=== PATIENT | male | born 1995 | race Caucasian/White ===

== ENCOUNTER 2018-05-20 11:20 | Emergency (ER) | payer BC ==
[2016-07-20 12:17] VITALS: Wt 81.6 kg
[~2018-05-20 11:20] MED LIST: ALB6.7R INH; ALBU4TAB37 PO; CLAR-1 PO; CYCL-343 PO; DIC75 PO; GUAI600T57 PO; HYDR-389 PO; IBU600 PO; IBUP-1671 PO; IBUP600T22 PO; LOR5 PO; LOR5/325 PO; LORA-941 PO; LORA10TA2 PO; MONT5TAB15 PO; PER PO
--- NOTE | 2018-05-20 11:30 | ER Report ---
History and Physical Time Seen By MD: 11:27 HPI/ROS CHIEF COMPLAINT: Flu symptoms HISTORY OF PRESENT ILLNESS: This is a 22-year-old male who presents to the emergency department for flulike symptoms. Patient states over the last 24 hours he's had a rather abrupt onset of aches, chills, nausea vomiting and some diarrhea. Some abdominal cramping. No dysuria. States he has "some autoimmune disease that makes him really sick". He does have achiness throughout his entire back that does wax and wane. Patient has not received a influenza vaccine. I did recommend after he is over his illness that he should follow up with [facility] for vaccine. No rashes. No meningismus. No chest pain or shortness of breath. REVIEW OF SYSTEMS: Respiratory: No cough, no dyspnea. Cardiovascular: No chest pain, no palpitations. Gastrointestinal: As well. Musculoskeletal: Above. Allergies: Coded Allergies: Shellfish (Verified Allergy, Intermediate, unknown, 05/20/18) iodine (Verified Allergy, Mild, 05/20/18) Home Meds Active Scripts Promethazine Hcl (PROMETHAZINE HCL) 25 Mg Tablet, 25 MG PO Q8H, #12 TAB 0 Refills Prov:MANAN VILLALOBOS [facility] 05/20/18 Ondansetron (ZOFRAN ODT) 4 Mg Tab.rapdis, 4 MG PO Q6H PRN for NAUSEA/VOMITING, #20 TAB.AGTAHA Prov:MANAN VILLALOBOS [facility] 05/20/18 Ibuprofen (IBUPROFEN) 600 Mg Tablet, 600 MG PO TIDCF, #30 TAB 1 Refill Prov:SUSAN CISNEROS MD 07/20/16 Acetaminophen/Hydrocodone (HYDROCODON-ACETAMINOPH 7.5-325) 1 Each Ea, 1-2 EACH PO Q4H PRN for PAIN, #30 TAB 0 Refills Prov:SUSAN CISNEROS MD 07/20/16 Guaifenesin (MUCINEX) 600 Mg Tablet.er, 600 MG PO BID, #0 TAB Prov:KARINA CISNEROS MD 07/19/16 Albuterol Sulfate (ALBUTEROL SULFATE) 4 Mg Tab.er.12h, 4 MG PO BID, #0 TAB Prov:KARINA CISNEROS MD 07/19/16 Past Medical/Surgical History Patient has a past medical and surgical history of oral surgery, the back pain injury, seasonal allergies, asthma, knee surgery, hand surgery, smokes. Reviewed Nurses Notes: Yes Hx Smoking: Yes Smoking Status: Former Smoker Hx Substance Use Disorder: No Hx Alcohol Use: No Constitutional Vital Sign - Last 24 Hours 05/20/18 05/20/18 05/20/18 05/20/18 11:30 13:00 13:15 13:30 Temp 98.2 Pulse 71 63 57 83 Resp 16 B/P (MAP) 114/63 115/68 (84) 118/67 (84) 113/70 (84) Pulse Ox 99 97 94 97 O2 Delivery Room Air Room Air Physical Exam General Appearance: The patient is alert, has no immediate need for airway protection and no current signs of toxicity. Eyes: Pupils equal and round no injection. Respiratory: Chest is non tender, lungs are clear to auscultation. Cardiac: regular rate and rhythm, no murmurs, clicks or rubs. Gastrointestinal: Abdomen is soft, mildly tender throughout the abdomen, hyperactive bowel sounds, no masses, no abdominal bruits. Musculoskeletal: Neck: Neck is supple and non tender. No nuchal pain. Extremities have full range of motion and are non tender. Skin: No rashes or lesions. DIFFERENTIAL DIAGNOSIS: After history and physical exam differential diagnosis was considered for influenza, viral syndrome, gastroenteritis. Medical Decision Making Data Points Result Diagram: 05/20/18 1205 05/20/18 1205 Laboratory Hematology Test 05/20/18 12:05 05/20/18 12:08 05/20/18 12:15 Red Blood Count 5.89 M/uL (4.00-5.60) Mean Corpuscular Volume 87.5 fL (80.0-96.0) Mean Corpuscular Hemoglobin 29.9 pg (26.0-33.0) Mean Corpuscular Hemoglobin Concent 34.2 g/dL (32.0-36.0) Red Cell Distribution Width 12.8 % (11.5-14.5) Mean Platelet Volume 9.1 fL (7.2-11.1) Neutrophils (%) (Auto) 82.0 % (39.4-72.5) Lymphocytes (%) (Auto) 12.2 % (17.6-49.6) Monocytes (%) (Auto) 5.1 % (4.1-12.4) Eosinophils (%) (Auto) 0.3 % (0.4-6.7) Basophils (%) (Auto) 0.4 % (0.3-1.4) Nucleated RBC Relative Count (auto) 0.0 /100WBC Neutrophils # (Auto) 6.6 K/uL (2.0-7.4) Lymphocytes # (Auto) 1.0 K/uL (1.3-3.6) Monocytes # (Auto) 0.4 K/uL (0.3-1.0) Eosinophils # (Auto) 0.0 K/uL (0.0-0.5) Basophils # (Auto) 0.0 K/uL (0.0-0.1) Nucleated RBC Absolute Count (auto) 0.00 K/uL Sodium Level 138 mmol/L (137-145) Potassium Level 3.7 mmol/L (3.5-5.0) Chloride Level 103 mmol/L (98-107) Carbon Dioxide Level 23 mmol/L (22-30) Blood Urea Nitrogen 18 mg/dl (9-21) Creatinine 0.90 mg/dl (0.66-1.25) Glomerular Filtration Rate Calc > 60.0 Random Glucose 89 mg/dl (75-110) Calcium Level 8.7 mg/dl (8.4-10.2) Total Bilirubin 2.5 mg/dl (0.2-1.3) Aspartate Amino Transf (AST/SGOT) 30 U/L (0-35) Alanine Aminotransferase (ALT/SGPT) 42 U/L (0-56) Alkaline Phosphatase 92 U/L (0-126) Total Protein 7.6 g/dl (6.3-8.2) Albumin 4.2 g/dl (3.5-5.0) Lipase 56 U/L (23-300) Influenza Virus Type A (PCR) Negative (NEGATIVE) Influenza Virus Type B (PCR) Negative (NEGATIVE) Urine Color Yellow Urine Clarity Clear Urine pH 5.0 pH (4.8-9.5) Urine Specific Angela 1.026 Urine Protein Negative mg/dL (NEGATIVE) Urine Glucose (UA) Negative mg/dL (NEGATIVE) Urine Ketones Trace mg/dL (NEGATIVE) Urine Blood Negative (NEGATIVE) Urine Nitrite Negative (NEGATIVE) Urine Bilirubin Negative (NEGATIVE) Urine Urobilinogen 4.0 mg/dL (0.2-1.9) Urine Leukocyte Esterase Negative (NEGATIVE) Urine RBC <1 /HPF (0-2/HPF) Urine WBC 1 /HPF (0-5/HPF) Urine Squamous Epithelial Cells None /LPF (</=FEW) Urine Bacteria Negative /HPF (NONE-FEW) Urine Mucus Few /HPF (NONE-FEW) Chemistry Test 05/20/18 12:05 05/20/18 12:08 05/20/18 12:15 White Blood Count 8.1 k/uL (4.5-11.0) Red Blood Count 5.89 M/uL (4.00-5.60) Hemoglobin 17.6 g/dL (14.0-18.0) Hematocrit 51.6 % (42.0-52.0) Mean Corpuscular Volume 87.5 fL (80.0-96.0) Mean Corpuscular Hemoglobin 29.9 pg (26.0-33.0) Mean Corpuscular Hemoglobin Concent 34.2 g/dL (32.0-36.0) Red Cell Distribution Width 12.8 % (11.5-14.5) Platelet Count 261 K/uL (150-450) Mean Platelet Volume 9.1 fL (7.2-11.1) Neutrophils (%) (Auto) 82.0 % (39.4-72.5) Lymphocytes (%) (Auto) 12.2 % (17.6-49.6) Monocytes (%) (Auto) 5.1 % (4.1-12.4) Eosinophils (%) (Auto) 0.3 % (0.4-6.7) Basophils (%) (Auto) 0.4 % (0.3-1.4) Nucleated RBC Relative Count (auto) 0.0 /100WBC Neutrophils # (Auto) 6.6 K/uL (2.0-7.4) Lymphocytes # (Auto) 1.0 K/uL (1.3-3.6) Monocytes # (Auto) 0.4 K/uL (0.3-1.0) Eosinophils # (Auto) 0.0 K/uL (0.0-0.5) Basophils # (Auto) 0.0 K/uL (0.0-0.1) Nucleated RBC Absolute Count (auto) 0.00 K/uL Glomerular Filtration Rate Calc > 60.0 Calcium Level 8.7 mg/dl (8.4-10.2) Total Bilirubin 2.5 mg/dl (0.2-1.3) Aspartate Amino Transf (AST/SGOT) 30 U/L (0-35) Alanine Aminotransferase (ALT/SGPT) 42 U/L (0-56) Alkaline Phosphatase 92 U/L (0-126) Total Protein 7.6 g/dl (6.3-8.2) Albumin 4.2 g/dl (3.5-5.0) Lipase 56 U/L (23-300) Influenza Virus Type A (PCR) Negative (NEGATIVE) Influenza Virus Type B (PCR) Negative (NEGATIVE) Urine Color Yellow Urine Clarity Clear Urine pH 5.0 pH (4.8-9.5) Urine Specific Angela 1.026 Urine Protein Negative mg/dL (NEGATIVE) Urine Glucose (UA) Negative mg/dL (NEGATIVE) Urine Ketones Trace mg/dL (NEGATIVE) Urine Blood Negative (NEGATIVE) Urine Nitrite Negative (NEGATIVE) Urine Bilirubin Negative (NEGATIVE) Urine Urobilinogen 4.0 mg/dL (0.2-1.9) Urine Leukocyte Esterase Negative (NEGATIVE) Urine RBC <1 /HPF (0-2/HPF) Urine WBC 1 /HPF (0-5/HPF) Urine Squamous Epithelial Cells None /LPF (</=FEW) Urine Bacteria Negative /HPF (NONE-FEW) Urine Mucus Few /HPF (NONE-FEW) Urinalysis Test 05/20/18 12:15 Urine Color Yellow Urine Clarity Clear Urine pH 5.0 pH (4.8-9.5) Urine Specific Angela 1.026 Urine Protein Negative mg/dL (NEGATIVE) Urine Glucose (UA) Negative mg/dL (NEGATIVE) Urine Ketones Trace mg/dL (NEGATIVE) Urine Blood Negative (NEGATIVE) Urine Nitrite Negative (NEGATIVE) Urine Bilirubin Negative (NEGATIVE) Urine Urobilinogen 4.0 mg/dL (0.2-1.9) Urine Leukocyte Esterase Negative (NEGATIVE) Urine RBC <1 /HPF (0-2/HPF) Urine WBC 1 /HPF (0-5/HPF) Urine Squamous Epithelial Cells None /LPF (</=FEW) Urine Bacteria Negative /HPF (NONE-FEW) Urine Mucus Few /HPF (NONE-FEW) ED Course/Re-evaluation Clinical Indication for ER IV: Hydration, IV Access ED Course The patient was admitted to room. A history and physical were obtained. Differential diagnoses were considered. An IV was started. A CBC, CMP and influenza were obtained. Laboratory studies unremarkable. Urine showing mild dehydration, concentrated with some ketones. Patient was given a 1 L normal saline bolus. 4 mg IV Zofran, 30 mg IV Toradol. Patient had complete relief of the nausea and sick and relief of his aches and pains. I did review the laboratory results with the patient. I did tell him that this is likely a gastroenteritis and that we will pass. The patient was given a prescription for Zofran and Phenergan. Patient was also instructed to take ibuprofen or Tylenol for aches and pains and chills. Also encouraged to trial a clear liquid diet for the next 24-48 hours. The patient had no other questions or concerns at this time and was discharged home. Patient was agreeable with this plan of care. Decision to Disposition Date: May 20, 2018 Decision to Disposition Time: 13:27 Depart Departure Latest Vital Signs Vital Signs Date Time Temp Pulse Resp B/P (MAP) Pulse Ox O2 Delivery O2 Flow Rate FiO2 05/20/18 13:30 83 113/70 (84) 97 Room Air 05/20/18 11:30 98.2 16 Impression: Primary Impression: Gastroenteritis Condition: Improved Disposition: HOME OR SELF-CARE New Scripts Promethazine Hcl (PROMETHAZINE HCL) 25 Mg Tablet 25 MG PO Q8H, #12 TAB 0 Refills Prov: MANAN VILLALOBOS [employer] 05/20/18 Ondansetron (ZOFRAN ODT) 4 Mg Tab.rapdis 4 MG PO Q6H PRN for NAUSEA/VOMITING, #20 TAB.AGATHA Prov: MANAN VILLALOBOS [employer] 05/20/18 Patient Instructions: Clear Liquid Diet (ED), Gastroenteritis (ED) Additional Instructions: I would recommend a clear liquid diet for the next 24-48 hours. Take the Zofran and Phenergan as needed for nausea and vomiting. Be aware that the Phenergan does cause severe drowsiness. Drink plenty of water. You can also try a sports drinks such as Gatorade. Get plenty of rest. Return to the emergency department for any other concerns or worsening symptoms. Check with public health regarding the influenza vaccine. Take ibuprofen or Tylenol as needed for aches and pains. MANAN VILLALOBOS [facility] May 20, 2018 11:30
[2018-05-20] MEDS ORDERED: NS(*) 0.9% 1000 ML BAG 1,000 ML IV ONE (11:42)
[2018-05-20] MEDS ORDERED: ONDANSETRON 4 MG/2 ML VIAL IVP ONE (11:45)
[2018-05-20] MEDS ORDERED: KETOROLAC 30 MG/ML VIAL IVP ONE (12:25)
[2018-05-20 12:33] LABS: PLATELET COUNT, AUTOMATED 261 K/uL (150-450)
[2018-05-20] MEDS ORDERED: ONDA4TAB PO (13:28)
[2018-05-20] MEDS ORDERED: PROM-110 PO (13:28)
[2018-05-20 13:30] VITALS: BP 113/70
== END 2018-05-20 13:52 | disposition home or self-care (01) ==
LOC: ER 11:25
DX: K52.9 Noninfective gastroenteritis and colitis, unspecified (principal); E86.0 Dehydration
CPT/HCPCS: 81001; 83690; 85025; 87502; 96361; 96374; 96375; 99284; J1885; J2405; J7030; 82040; 82247; 82310; 82374; 82435; 82565; 82947; 84075; 84132; 84155; 84295; 84450; 84460; 84520

== ENCOUNTER 2018-06-13 01:49 | Emergency (ER) | payer BC ==
[2016-07-20 12:17] VITALS: Wt 68.0 kg
[~2018-06-13 01:49] MED LIST changes: -ONDA4TAB9 PO
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
[2018-06-13] MEDS ORDERED: fentaNYL CITR 100 MCG/2 ML AMP IVP ONE (02:15)
[2018-06-13 02:22] LABS: PLATELET COUNT, AUTOMATED 300 K/uL (150-450)
[2018-06-13 02:23] LABS: INR 0.98
--- NOTE | 2018-06-13 03:39 | EKG ---
FACILITY: [facility] PATIENT NAME: KERRY RAMIREZ : [id number] MR: [id number] V: [id number] EXAM DATE: ORDERING PHYSICIAN: GERMAIN HANCOCK TECHNOLOGIST: OUMOU Test Reason : SEIZURE Blood Pressure : / mmHG Vent. Rate : 083 BPM Atrial Rate : 083 BPM P-R Int : 138 ms QRS Dur : 086 ms QT Int : 364 ms P-R-T Axes : -43 070 053 degrees QTc Int : 427 ms Sinus rhythm, but with unusual P wave axis Diffuse ST elevation suspect early repolarization, but cannot exclude other causes Abnormal ECG No previous ECGs available Confirmed by SUSAN CISNEROS ([id number]) on 06/13/2018 6:23:17 AM Referred By: SANTI Confirmed By:SUSAN CISNEROS
[2018-06-13] MEDS ORDERED: ONDANSETRON 4 MG/2 ML VIAL IVP ONE (03:40)
[2018-06-13] MEDS ORDERED: HYDROMORPHONE HCL 1 MG/ML SYRINGE IVP ONE (03:45)
--- NOTE | 2018-06-13 03:52 | RADIOLOGY IMAGING REPORT ---
FACILITY: [facility] [place] PATIENT NAME: Lopez Red : 1995 MR: [id number] V: [id number] EXAM DATE: ORDERING PHYSICIAN: GERMAIN HANCOCK TECHNOLOGIST: Location: [facility] Patient: Lopez Red : 1995 Visit/Account:[id number] Date of Sevice: 06/13/2018 HEAD W/O CONTRAST HISTORY: Seizure. Fall. Head, neck, and back pain. COMPARISON: 07/18/2016 and studies dating to 05/30/2008. CT cervical spine and CT chest, abdomen, and pelvis with thoracic and lumbar spine reformats were performed at the same time as the current examin [facility]. TECHNIQUE: Axial images were obtained from the skull base to the vertex without contrast. Sagittal an d coronal reformats were performed. One of the following dose optimization techniques was utilized in the performance of this exam: Autom ated exposure control; adjustment of the mA and/or kV according to the patient's size; or use of an i terative reconstruction technique. Specific details can be referenced in the facility's radiology CT exam operational policy. CONTRAST: None. FINDINGS: Brain: No intracranial hemorrhage, mass, or edema. Ventricles and sulci: Sulci are normal. Ventricular size and configuration is normal. Osseous structures: Intact. Paranasal sinuses and mastoids: There is mild mucosal thickening of the ethmoid sinuses. Rightward na devon septal deviation and rightward nasal septal spur. Mastoids are clear. The upper left central inci sor is absent. There is metallic hardware in the mouth. Orbits and soft tissues: Normal. IMPRESSION: 1. No acute intracranial abnormality. Report Dictated By: Nargis Armenta at 06/13/2018 3:42 AM Report E-Signed By: Nargis Armenta at 06/13/2018 3:48 AM WSN:[id number]
--- NOTE | 2018-06-13 03:56 | RADIOLOGY IMAGING REPORT ---
[place] [facility] [place] Lopez Red : 1995 MR: [id number] V: [id number] EXAM DATE: ORDERING PHYSICIAN: GERMAIN HANCOCK TECHNOLOGIST: Location: [facility] [place] Patient: Lopez Red : 1995 Visit/Account:[id number] Date of Sevice: 06/13/2018 C-SPINE W/O CONTRAST HISTORY: Seizure. Fall. Head, neck, and back pain. COMPARISON: Prior CT cervical spine 07/18/2016 and studies dating to 05/30/2008. TECHNIQUE: Axial images were obtained from the skull base through the upper thoracic spine. Coronal a nd sagittal reformatted images were obtained from the axial source data. One of the following dose optimization techniques was utilized in the performance of this exam: Autom ated exposure control; adjustment of the mA and/or kV according to the patient's size; or use of an i terative reconstruction technique. Specific details can be referenced in the facility's radiology CT exam operational policy. CONTRAST: None. FINDINGS: Musculoskeletal/vertebra: No acute osseous abnormality. Vertebral body heights are maintained and ali gnment is unremarkable. Prevertebral soft tissues are within normal limits. The spinal canal is savi l in caliber. Visualized upper chest: Normal. Soft tissues: There is a left tonsillith. No tonsillar inflammation. There is mild dependent subcutan eous edema. IMPRESSION: 1. No acute osseous abnormality of the cervical spine. Report Dictated By: Nargis Armenta at 06/13/2018 3:48 AM Report E-Signed By: Nargis Armenta at 06/13/2018 3:52 AM WSN:[id number]
[2018-06-13 04:31] VITALS: BP 113/63
--- NOTE | 2018-06-13 04:39 | RADIOLOGY IMAGING REPORT ---
[place] [facility] [place] NAME: Lopez Red : 1995 MR: [id number] V: [id number] EXAM DATE: ORDERING PHYSICIAN: GERMAIN HANCOCK TECHNOLOGIST: [facility] Patient: Lopez Red : 1995 Visit/Account:[id number] Date of Sevice: 06/13/2018 CHEST/AB/PELV W/OUT CONTRAST, L-SPINE W/O CONTRAST, T-SPINE W/O CONTRAST HISTORY: Seizure. Fall. Low back pain. COMPARISON: None. TECHNIQUE: Axial images were obtained from the thoracic inlet through the symphysis pubis without int ravenous contrast. Sagittal and coronal reformats were performed. Images of the thoracic and lumbar spine were reconstructed from the CT source images, and sagittal an d coronal reformats were performed. One of the following dose optimization techniques was utilized in the performance of this exam: Autom ated exposure control; adjustment of the mA and/or kV according to the patient's size; or use of an i terative reconstruction technique. Specific details can be referenced in the facility's radiology CT exam operational policy. CONTRAST: None. FINDINGS: Lack of intravenous contrast limits evaluation for vascular and subtle solid organ injury. Thoracic inlet: Normal. Thoracic aorta: No aneurysm. There is no atherosclerosis of the thoracic aorta. Heart / Pericardium: The heart is normal. There is trace, likely physiologic, pericardial effusion. T here is no coronary artery calcification. Mediastinum / Mayelin: Minimal residual thymic tissue, normal for age. No lymphadenopathy. Lungs / Pleura: No pleural effusion. The lungs are clear. No pneumothorax. The airways are normal. Liver: Normal. Gallbladder/biliary: Normal. Pancreas: Normal. Spleen: Normal. Adrenals: Normal. Kidneys/ureters/bladder: There is are a 1-2 mm nonobstructing calculus in the left upper kidney and a second in the left lower kidney. No hydronephrosis. The right kidney, the ureters, and the bladder a re normal. GI/mesentery/peritoneal cavity: There is no bowel obstruction. There is no wall thickening or pericol onic stranding. The appendix is normal. There is no free air or free fluid. Vessels: No atherosclerotic disease. No aneurysm. Nodes: Normal. Pelvis: Normal. Bones/vertebra/soft tissues: There is minimal concave deformity of the superior endplate of T12. Ther e is minimal wedging of T11. Both vertebra are unchanged compared to chest x-ray of 07/18/2016. There are numerous Schmorl nodes. There is 4 mm retrolisthesis of L5 on S1. IMPRESSION: 1. No acute traumatic abnormality of the chest, abdomen, or pelvis. Report Dictated By: Nargis Armenta at 06/13/2018 4:16 AM Report E-Signed By: Nargis Armenta at 06/13/2018 4:34 AM WSN:[id number]
--- NOTE | 2018-06-13 04:40 | RADIOLOGY IMAGING REPORT ---
FACILITY: [facility] PATIENT NAME: Lopez Red : 1995 MR: [id number] V: [id number] EXAM DATE: ORDERING PHYSICIAN: GERMAIN HANCOCK TECHNOLOGIST: [place] [facility] [place] : 1995 Visit/Account:[id number] Date of Sevice: 06/13/2018 CHEST/AB/PELV W/OUT CONTRAST, L-SPINE W/O CONTRAST, T-SPINE W/O CONTRAST HISTORY: Seizure. Fall. Low back pain. COMPARISON: None. TECHNIQUE: Axial images were obtained from the thoracic inlet through the symphysis pubis without int ravenous contrast. Sagittal and coronal reformats were performed. Images of the thoracic and lumbar spine were reconstructed from the CT source images, and sagittal an d coronal reformats were performed. One of the following dose optimization techniques was utilized in the performance of this exam: Autom ated exposure control; adjustment of the mA and/or kV according to the patient's size; or use of an i terative reconstruction technique. Specific details can be referenced in the facility's radiology CT exam operational policy. CONTRAST: None. FINDINGS: Lack of intravenous contrast limits evaluation for vascular and subtle solid organ injury. Thoracic inlet: Normal. Thoracic aorta: No aneurysm. There is no atherosclerosis of the thoracic aorta. Heart / Pericardium: The heart is normal. There is trace, likely physiologic, pericardial effusion. T here is no coronary artery calcification. Mediastinum / Mayelin: Minimal residual thymic tissue, normal for age. No lymphadenopathy. Lungs / Pleura: No pleural effusion. The lungs are clear. No pneumothorax. The airways are normal. Liver: Normal. Gallbladder/biliary: Normal. Pancreas: Normal. Spleen: Normal. Adrenals: Normal. Kidneys/ureters/bladder: There is are a 1-2 mm nonobstructing calculus in the left upper kidney and a second in the left lower kidney. No hydronephrosis. The right kidney, the ureters, and the bladder a re normal. GI/mesentery/peritoneal cavity: There is no bowel obstruction. There is no wall thickening or pericol onic stranding. The appendix is normal. There is no free air or free fluid. Vessels: No atherosclerotic disease. No aneurysm. Nodes: Normal. Pelvis: Normal. Bones/vertebra/soft tissues: There is minimal concave deformity of the superior endplate of T12. Ther e is minimal wedging of T11. Both vertebra are unchanged compared to chest x-ray of 07/18/2016. There are numerous Schmorl nodes. There is 4 mm retrolisthesis of L5 on S1. IMPRESSION: 1. No acute traumatic abnormality of the chest, abdomen, or pelvis. Report Dictated By: Nargis Armenta at 06/13/2018 4:16 AM Report E-Signed By: Nargis Armenta at 06/13/2018 4:34 AM WSN:[id number]
--- NOTE | 2018-06-13 04:40 | RADIOLOGY IMAGING REPORT ---
[place] [facility] [place] NAME: Lopez Red : 1995 MR: [id number] V: [id number] EXAM DATE: ORDERING PHYSICIAN: GERMAIN HANCOCK TECHNOLOGIST: Location: [facility] Patient: Lopez Red : 1995 Visit/Account:[id number] Date of Sevice: 06/13/2018 CHEST/AB/PELV W/OUT CONTRAST, L-SPINE W/O CONTRAST, T-SPINE W/O CONTRAST HISTORY: Seizure. Fall. Low back pain. COMPARISON: None. TECHNIQUE: Axial images were obtained from the thoracic inlet through the symphysis pubis without int ravenous contrast. Sagittal and coronal reformats were performed. Images of the thoracic and lumbar spine were reconstructed from the CT source images, and sagittal an d coronal reformats were performed. One of the following dose optimization techniques was utilized in the performance of this exam: Autom ated exposure control; adjustment of the mA and/or kV according to the patient's size; or use of an i terative reconstruction technique. Specific details can be referenced in the facility's radiology CT exam operational policy. CONTRAST: None. FINDINGS: Lack of intravenous contrast limits evaluation for vascular and subtle solid organ injury. Thoracic inlet: Normal. Thoracic aorta: No aneurysm. There is no atherosclerosis of the thoracic aorta. Heart / Pericardium: The heart is normal. There is trace, likely physiologic, pericardial effusion. T here is no coronary artery calcification. Mediastinum / Mayelin: Minimal residual thymic tissue, normal for age. No lymphadenopathy. Lungs / Pleura: No pleural effusion. The lungs are clear. No pneumothorax. The airways are normal. Liver: Normal. Gallbladder/biliary: Normal. Pancreas: Normal. Spleen: Normal. Adrenals: Normal. Kidneys/ureters/bladder: There is are a 1-2 mm nonobstructing calculus in the left upper kidney and a second in the left lower kidney. No hydronephrosis. The right kidney, the ureters, and the bladder a re normal. GI/mesentery/peritoneal cavity: There is no bowel obstruction. There is no wall thickening or pericol onic stranding. The appendix is normal. There is no free air or free fluid. Vessels: No atherosclerotic disease. No aneurysm. Nodes: Normal. Pelvis: Normal. Bones/vertebra/soft tissues: There is minimal concave deformity of the superior endplate of T12. Ther e is minimal wedging of T11. Both vertebra are unchanged compared to chest x-ray of 07/18/2016. There are numerous Schmorl nodes. There is 4 mm retrolisthesis of L5 on S1. IMPRESSION: 1. No acute traumatic abnormality of the chest, abdomen, or pelvis. Report Dictated By: Nargis Armenta at 06/13/2018 4:16 AM Report E-Signed By: Nargis Armenta at 06/13/2018 4:34 AM WSN:[id number]
--- NOTE | 2018-06-13 04:40 | RADIOLOGY IMAGING REPORT ---
FACILITY: [facility] [place] PATIENT NAME: Lopez Red : 1995 MR: [id number] V: [id number] EXAM DATE: ORDERING PHYSICIAN: GERMAIN HANCOCK TECHNOLOGIST: Location: [facility] Patient: Lopez Red : 1995 Visit/Account:[id number] Date of Sevice: 06/13/2018 CHEST SINGLE AP 06/13/2018 02:09 hours. HISTORY: Seizure. Fall. COMPARISON: 07/18/2016 and studies dating to 06/29/2008. TECHNIQUE: Portable AP view of the chest. FINDINGS: Tubes/lines/hardware: None. Pulmonary: There is a skin fold of the left upper chest. Lungs are clear. There is no pneumothorax or pleural effusion. Cardiomediastinal: Cardiac and mediastinal silhouettes are within normal limits. Bones/soft tissues: No acute osseous abnormality. Healed distal right clavicle fracture. The visible abdomen is normal. IMPRESSION: 1. No acute cardiopulmonary process. Report Dictated By: Nargis Armenta at 06/13/2018 4:35 AM Report E-Signed By: Nargis Armenta at 06/13/2018 4:36 AM WSN:[id number]
[2018-06-13] MEDS ORDERED: LOR5/325 PO (04:56)
[2018-06-13] MEDS ORDERED: ONDA4TAB9 PO (04:57)
[2018-06-13] MEDS ORDERED: ONDANSETRON 4 MG ODT TH SL ONE (05:00)
[2018-06-13] MEDS ORDERED: ACET/HYDROC 5/325MG TH ER ONLY 2 TAB/BOTTLE PO ONE (05:00)
== END 2018-06-13 05:02 | disposition home or self-care (01) ==
LOC: ER 01:58
DX: R56.9 Unspecified convulsions (principal); S10.93XA Contusion of unspecified part of neck, initial encounter; S20.229A Contusion of unspecified back wall of thorax, initial encounter
CPT/HCPCS: 70450; 71045; 71250; 72125; 72128; 72131; 74176; 80305; 80320; 81001; 85025; 85610; 85730; 93005; 96374; 96375; 99285; J1170; J2405; J3010; S0119; 82040; 82247; 82310; 82374; 82435; 82565; 82947; 84075; 84132; 84155; 84295; 84450; 84460; 84520

== ENCOUNTER → 2018-06-13 | Outpatient (CLI) | payer BC ==
[2016-07-20 12:17] VITALS: BMI 20.2
[~2018-06-13] MED LIST changes: +ONDA4TAB PO; +ONDA4TAB9 PO; +PROM-110 PO
== END ==
LOC: AMB 01:31
PROVIDERS: ATTEND Nurse Practitioner
DX: R56.9 Unspecified convulsions (principal); R25.1 Tremor, unspecified
CPT/HCPCS: A0425; A0427

== ENCOUNTER 2018-10-10 09:00 | Emergency (ER) | payer BC ==
[2016-07-20 12:17] VITALS: Wt 72.6 kg
[~2018-10-10 09:00] MED LIST changes: +ONDA4TAB9 PO
--- NOTE | 2018-10-10 09:02 | ER Report ---
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 States that he woke up with a migraine this morning around 7 AM. He is feeling the pain in the back of the head with associated nausea he has not vomited. He denies any neck stiffness or fevers. Patient states his last seizure was around giving. He is supposed to be taking Keppra but has not been on this medication for the last 2 years. Patient denies any new traumatic injuries. He denies any new or uncharacteristic feelings with this migraine other than it is severe. Patient denies chest pain or shortness of breath denies abdominal pain. REVIEW OF SYSTEMS: Constitutional: No fever, no chills. Eyes: No discharge. ENT: No sore throat. Cardiovascular: No chest pain, no palpitations. Respiratory: No cough, no shortness of breath. Gastrointestinal: No abdominal pain, no vomiting. Genitourinary: No hematuria. Musculoskeletal: No back pain. Skin: No rashes. Neurological: Typical migraine headache Allergies: Coded Allergies: Shellfish (Verified Allergy, Intermediate, unknown, 06/13/18) iodine (Verified Allergy, Mild, 06/13/18) Home Meds Active Scripts Ondansetron Hcl (ZOFRAN) 4 Mg Tablet, 4 MG PO Q8H for Nausea, #15 TAB 0 Refills Prov:MIKKI BUCIO MD 10/10/18 Naproxen (NAPROXEN) 375 Mg Tablet, 375 MG PO TID for PAIN, #15 TAB 0 Refills Prov:MIKKI BUCIO MD 10/10/18 Levetiracetam (KEPPRA) 500 Mg Tablet, 500 MG PO BID for 30 Days, #60 TAB 0 Refills Prov:MIKKI BUCIO MD 10/10/18 Discontinued Scripts Ondansetron 4 Mg Odt (ONDANSETRON 4 MG ODT) 4 Mg Tab.rapdis, 4 MG PO Q6H PRN for NAUSEA/VOMITING, #20 TAB 0 Refills Prov:GERMAIN HANCOCK MD 06/13/18 Hydrocodone Bit/Acetaminophen (HYDROCODON-ACETAMINOPHEN 5-325) 1 Each Tablet, 1 EACH PO Q4H PRN for PAIN, #12 TAB 0 Refills Prov:GERMAIN HANCOCK MD 06/13/18 Past Medical/Surgical History Past medical history for chronic neck pain, history of traumatic brain injury, posttraumatic seizures, history of migraines. Hx Smoking: Yes Smoking Status: Former Smoker Hx Substance Use Disorder: No Hx Alcohol Use: No Constitutional Vital Sign - Last 24 Hours 10/10/18 10/10/18 10/10/18 10/10/18 09:00 09:02 09:03 09:20 Temp 98.0 Pulse 68 67 Resp 18 B/P (MAP) 120/82 (95) 120/82 Pulse Ox 97 O2 Delivery Room Air 10/10/18 10/10/18 10/10/18 10/10/18 09:30 09:40 09:40 10:00 Pulse 57 56 Resp 0 B/P (MAP) 120/68 (85) 114/65 (81) Pulse Ox 99 O2 Flow Rate 2.0 10/10/18 10/10/18 10/10/18 10/10/18 10:20 10:26 10:30 10:40 Pulse 83 61 Resp 12 20 B/P (MAP) 117/73 (88) 106/65 (79) Pulse Ox 98 94 10/10/18 10/10/18 10:45 11:00 Pulse 61 Resp 29 B/P (MAP) 107/61 (76) Pulse Ox 93 Intake and Output 10/10/18 10/10/18 10/11/18 15:00 23:00 07:00 Intake Total 1000 ml Balance 1000 ml Physical Exam General/Constitutional: Patient is awake, alert, nontoxic and in no acute respiratory distress. Head: Normocephalic and atraumatic. Eyes: Conjunctival clear, Pupils are equal and reactive to light. Extraocular muscles are intact and symmetrical. Sclera are clear and anicteric. Ears:External canals are clear. Tympanic membranes are clear with normal landmarks and light reflex. Nares: No rhinorrhea or bleeding. Turbinates are pink and moist. Oropharyngeal: Mucous membranes are moist. There is no pharyngeal erythema or exudate. There are no palatal petechiae. Uvula is midline and symmetrical. Neck: Supple, no adenopathy. Cardiovascular: Heart is regular rate and rhythm without audible murmurs, rubs or gallops. Pulmonary: Lungs are clear to auscultation bilaterally. There are no wheezes, rales, or rhonchi. Chest rise is symmetrical Abdomen: Soft, nontender, no guarding or peritoneal signs. Extremities: No gross deformities, No peripheral cyanosis. Able to move all 4 extremities. Neuro: Alert and oriented X3, Cranial nerves 2 thru 12 are intact and symmetrical. Skin: No rashes, skin is warm dry and well perfused. Medical Decision Making Data Points Result Diagram: 10/10/18 0916 10/10/18 0916 Laboratory Hematology Test 10/10/18 09:16 Red Blood Count 5.55 M/uL (4.00-5.60) Mean Corpuscular Volume 89.0 fL (80.0-96.0) Mean Corpuscular Hemoglobin 30.3 pg (26.0-33.0) Mean Corpuscular Hemoglobin Concent 34.1 g/dL (32.0-36.0) Red Cell Distribution Width 13.3 % (11.5-14.5) Mean Platelet Volume 8.2 fL (7.2-11.1) Neutrophils (%) (Auto) 55.3 % (39.4-72.5) Lymphocytes (%) (Auto) 34.7 % (17.6-49.6) Monocytes (%) (Auto) 7.4 % (4.1-12.4) Eosinophils (%) (Auto) 1.7 % (0.4-6.7) Basophils (%) (Auto) 0.9 % (0.3-1.4) Nucleated RBC Relative Count (auto) 0.0 /100WBC Neutrophils # (Auto) 2.7 K/uL (2.0-7.4) Lymphocytes # (Auto) 1.7 K/uL (1.3-3.6) Monocytes # (Auto) 0.4 K/uL (0.3-1.0) Eosinophils # (Auto) 0.1 K/uL (0.0-0.5) Basophils # (Auto) 0.0 K/uL (0.0-0.1) Nucleated RBC Absolute Count (auto) 0.00 K/uL Sodium Level 141 mmol/L (137-145) Potassium Level 3.8 mmol/L (3.5-5.0) Chloride Level 106 mmol/L (98-107) Carbon Dioxide Level 24 mmol/L (22-30) Blood Urea Nitrogen 18 mg/dl (9-21) Creatinine 1.00 mg/dl (0.66-1.25) Glomerular Filtration Rate Calc > 60.0 Random Glucose 85 mg/dl (75-110) Calcium Level 9.1 mg/dl (8.4-10.2) Total Bilirubin 1.9 mg/dl (0.2-1.3) Aspartate Amino Transf (AST/SGOT) 29 U/L (0-35) Alanine Aminotransferase (ALT/SGPT) 33 U/L (0-56) Alkaline Phosphatase 99 U/L (0-126) Total Protein 8.1 g/dl (6.3-8.2) Albumin 4.7 g/dl (3.5-5.0) Chemistry Test 10/10/18 09:16 White Blood Count 5.0 k/uL (4.5-11.0) Red Blood Count 5.55 M/uL (4.00-5.60) Hemoglobin 16.9 g/dL (14.0-18.0) Hematocrit 49.4 % (42.0-52.0) Mean Corpuscular Volume 89.0 fL (80.0-96.0) Mean Corpuscular Hemoglobin 30.3 pg (26.0-33.0) Mean Corpuscular Hemoglobin Concent 34.1 g/dL (32.0-36.0) Red Cell Distribution Width 13.3 % (11.5-14.5) Platelet Count 250 K/uL (150-450) Mean Platelet Volume 8.2 fL (7.2-11.1) Neutrophils (%) (Auto) 55.3 % (39.4-72.5) Lymphocytes (%) (Auto) 34.7 % (17.6-49.6) Monocytes (%) (Auto) 7.4 % (4.1-12.4) Eosinophils (%) (Auto) 1.7 % (0.4-6.7) Basophils (%) (Auto) 0.9 % (0.3-1.4) Nucleated RBC Relative Count (auto) 0.0 /100WBC Neutrophils # (Auto) 2.7 K/uL (2.0-7.4) Lymphocytes # (Auto) 1.7 K/uL (1.3-3.6) Monocytes # (Auto) 0.4 K/uL (0.3-1.0) Eosinophils # (Auto) 0.1 K/uL (0.0-0.5) Basophils # (Auto) 0.0 K/uL (0.0-0.1) Nucleated RBC Absolute Count (auto) 0.00 K/uL Glomerular Filtration Rate Calc > 60.0 Calcium Level 9.1 mg/dl (8.4-10.2) Total Bilirubin 1.9 mg/dl (0.2-1.3) Aspartate Amino Transf (AST/SGOT) 29 U/L (0-35) Alanine Aminotransferase (ALT/SGPT) 33 U/L (0-56) Alkaline Phosphatase 99 U/L (0-126) Total Protein 8.1 g/dl (6.3-8.2) Albumin 4.7 g/dl (3.5-5.0) ED Course/Re-evaluation ED Course Plan at this time will be to start an IV we'll check CBC CMP, we'll give IV fluids we'll give IV Toradol, Reglan and Benadryl and Ativan. 10/10/2018 10:05:50 am patient sleeping comfortably at this time 10/10/2018 10:54:25 am patient improved ready for discharge home Decision to Disposition Date: Oct 10, 2018 Decision to Disposition Time: 10:54 Depart Departure Latest Vital Signs Vital Signs Date Time Temp Pulse Resp B/P (MAP) Pulse Ox O2 Delivery O2 Flow Rate FiO2 10/10/18 11:00 107/61 (76) 10/10/18 10:45 61 29 93 10/10/18 09:40 2.0 10/10/18 09:03 98.0 Room Air Impression: Primary Impression: Headache Condition: Improved Disposition: HOME OR SELF-CARE New Scripts Ondansetron Hcl (ZOFRAN) 4 Mg Tablet 4 MG PO Q8H for Nausea, #15 TAB 0 Refills Prov: MIKKI BUCIO MD 10/10/18 Naproxen (NAPROXEN) 375 Mg Tablet 375 MG PO TID for PAIN, #15 TAB 0 Refills Prov: MIKKI BUCIO MD 10/10/18 Levetiracetam (KEPPRA) 500 Mg Tablet 500 MG PO BID for 30 Days, #60 TAB 0 Refills Prov: MIKKI BUCIO MD 10/10/18 Departure Forms: ER Transition Record, Medications Reconciliation, Off Work/School Form, School or Work Release?: Work Number of days to be released: 2 Patient Portal Information Patient Instructions: Acute Headache (ED) Additional Instructions: Recommend scheduling an appointment with a neurologist who takes her insurance for continued management of outpatient seizures. Problem Qualifiers Primary Impression: Headache Headache type: unspecified Headache chronicity pattern: acute headache Intractability: not intractable Qualified Codes: R51 - Headache MIKKI BUCIO MD Oct 10, 2018 09:02
[2018-10-10] MEDS ORDERED: LORazepam 2 MG/ML VIAL IVP ONE (09:20)
[2018-10-10] MEDS ORDERED: KETOROLAC 15 MG/ML VIAL IVP ONE (09:20)
[2018-10-10] MEDS ORDERED: NS(*) 0.9% 1000 ML BAG 1,000 ML IV ONE (09:20)
[2018-10-10] MEDS ORDERED: diphenhydrAMINE 50 MG/ML VIAL IVP ONE (09:20)
[2018-10-10] MEDS ORDERED: METOCLOPRAMIDE 10 MG/2 ML SDV IVP ONE (09:20)
[2018-10-10 09:26] LABS: PLATELET COUNT, AUTOMATED 250 K/uL (150-450)
[2018-10-10] MEDS ORDERED: LEVE-14 PO (10:12)
[2018-10-10] MEDS ORDERED: NAPR375T44 PO (10:55)
[2018-10-10] MEDS ORDERED: ONDA4TAB97 PO (10:55)
[2018-10-10 11:00] VITALS: BP 107/61
== END 2018-10-10 11:10 | disposition home or self-care (01) ==
LOC: ER 09:03
DX: R51 Headache (principal)
CPT/HCPCS: 85025; 96361; 96374; 96375; 99284; J1200; J1885; J2060; J2765; J7030; 82040; 82247; 82310; 82374; 82435; 82565; 82947; 84075; 84132; 84155; 84295; 84450; 84460; 84520